=== PATIENT | female | born 1955 | race Caucasian/White ===

== ENCOUNTER 2017-02-08 08:50 | Inpatient (IN) | payer OTHER ==
--- NOTE | 2017-02-08 09:34 | ED Physician Chart ---
ED Chief Complaint/HPI - Patient Information Date Seen:: 02/08/17 Time Seen:: 09:20 Chief Complaint:: abdominal pain History of Present Illness:: Patient's had mid and upper abdominal pain for 3 week. She's had no vomiting. She has had mild diarrhea. On January 26 patient had a CAT scan at [facility] which showed a mass patient has appointment with an oncologist on 02/16/2017. Allergies:: Allergies Allergy/AdvReac Type Severity Reaction Status Date / Time acetaminophen [From Tylenol] AdvReac Verified 02/08/17 09:13 Vitals:: Vital Signs - 8 hr 02/08/17 09:13 Temp 98.0 F HR 106 RR 16 BP 117/73 O2 Sat % 98 ED Review of Systems - Review of Systems General/Constitutional: No fever, No chills Skin: No skin lesions Head: No headache Eyes: No loss of vision ENT: No earache Neck: No neck pain Cardio Vascular: No chest pain, No palpitations Pulmonary: No SOB GI: Diarrhea, Pain G/U: No dysuria Musculoskeletal: No bone or joint pain Endocrine: No polyuria, No polydipsia Psychiatric: No prior psych history Hematopoietic: No bruising Allergic/Immuno: No urticaria Neurological: No syncope, No focal symptoms ED Past Medical History - Past Medical History Past Medical History: Asthma/COPD, Other (asthma) Family History: None Social History: Non Smoker, No Alcohol Surgical History: , other (3 sections; ovarian cysts; endometriosis) Psychiatricy History: None Family Medical History - Family Member Mother History Unknown: Yes ED Physical Exam - Physical Examination General/Constitutional: Well-developed, well-nourished, Alert, No distress Head: Atraumatic Eyes: Lids, conjuctiva normal, PERRL Skin: Nl inspection, No rash ENMT: External ears, nose nl Neck: No nuchal rigidity Respiratory: Nl effort/Exclusion, Clear to Auscultation, No Wheeze/Rhonchi/Rales Cardio Vascular: RRR, No murmur, gallop, rubs, NL S1 S2 GI: No hernia, Normal BS's, No mass/bruits Other GI comments:: 2 out of 4 abdominal distention; bowel sounds present; diffuse tenderness Extremities: Normal digits & nails Other Extremities comments:: 2 out of 4 pretibial pitting edema Neuro/Psych: No focal deficits Misc: Normal back ED Labs/Radiology/EKG Results - Lab Results Results: Laboratory Results - last 24 hr 02/08/17 02/08/17 02/08/17 09:32 09:44 09:44 WBC 10.7 RBC 4.92 Hgb 14.0 Hct 43.3 MCV 88.1 MCH 28.4 MCHC Differential 32.2 RDW 13.8 Plt Count 509 H MPV 7.9 Neutrophils % 87.9 H Lymphocytes % 8.5 L Monocytes % 3.4 Eosinophils % 0.2 Basophils % 0.0 Sodium 136 Potassium 3.5 Chloride 101 Carbon Dioxide 28.7 Anion Gap 9.8 BUN 17 Creatinine 0.6 Est GFR ( Amer) > 60.0 Est GFR (Non-Af Amer) > 60.0 BUN/Creatinine Ratio 28.3 Glucose 171 H Calcium 11.5 H Total Bilirubin 0.8 AST 21 ALT 13 Alkaline Phosphatase 52 Total Protein 7.2 Albumin 4.3 Globulin 2.9 Albumin/Globulin Ratio 1.5 Lipase Urine Source RANDOM Urine Color YELLOW Urine Clarity HAZY Urine pH 6.0 Ur Specific [place] 1.025 Urine Protein 30 H Urine Glucose (UA) NEGATIVE Urine Ketones TRACE Urine Blood LARGE H Urine Nitrate NEGATIVE Urine Bilirubin SMALL H Urine Urobilinogen 0.2 Ur Leukocyte Esterase NEGATIVE Urine RBC 10-25 H Urine WBC 2-5 Ur Epithelial Cells MODERATE Urine Bacteria 2+ H Urine Mucus MODERATE 02/08/17 09:44 WBC RBC Hgb Hct MCV MCH MCHC Differential RDW Plt Count MPV Neutrophils % Lymphocytes % Monocytes % Eosinophils % Basophils % Sodium Potassium Chloride Carbon Dioxide Anion Gap BUN Creatinine Est GFR ( Amer) Est GFR (Non-Af Amer) BUN/Creatinine Ratio Glucose Calcium Total Bilirubin AST ALT Alkaline Phosphatase Total Protein Albumin Globulin Albumin/Globulin Ratio Lipase < 3 L Urine Source Urine Color Urine Clarity Urine pH Ur Specific [place] Urine Protein Urine Glucose (UA) Urine Ketones Urine Blood Urine Nitrate Urine Bilirubin Urine Urobilinogen Ur Leukocyte Esterase Urine RBC Urine WBC Ur Epithelial Cells Urine Bacteria Urine Mucus ED Assessment - Assessment General Assessment: Patient has multiple gallstones and a pelvic mass which could be a dermoid cyst or could be a malignancy. I spoke to the radiologist to said to determine if the patient has acute cholecystitis a HIDA scan is indicated. I spoke to Dr. Rivera and patient to be admitted. ED Septic Shock - . Is Septic Shock (SBP<90, OR Lactate>4 mmol\L) present?: No - <6hrs of presentation: Vital Signs: Vital Signs - 8 hr 02/08/17 09:13 Temp 98.0 F HR 106 RR 16 BP 117/73 O2 Sat % 98 ED Reassessment (Disposition) - Reassessment Reassessment Condition:: Unchanged - Diagnosis Diagnosis:: Cholelithiasis; pelvic mass; possible acute cholecystitis - Aftercare/Follow up Instructions Aftercare/Follow-Up Instructions:: Counseled pt regarding lab results/diagnosis & need follow up - Patient Disposition Admitted to:: Med/Surg Spoke to:: Karri Rivera Admitting Medical Physician:: Karri Rivera Condition at Disposition:: Stable, Unchanged
[2017-02-08 09:47] LABS: URINE MICROSCOPIC INDICATED? YES; URINE SOURCE RANDOM
[2017-02-08 09:52] LABS: WHITE BLOOD COUNT 10.7 Th/cmm (4.8-10.8)
[2017-02-08 09:53] LABS: URINE BILIRUBIN SMALL (NEGATIVE); URINE BLOOD LARGE (NEGATIVE); URINE CLARITY HAZY (CLEAR); URINE COLOR YELLOW; URINE GLUCOSE (UA) NEGATIVE (NEGATIVE); URINE KETONE TRACE mg/dL (NEGATIVE); URINE LEUKOCYTE ESTERASE NEGATIVE (NEGATIVE); URINE NITRATE NEGATIVE (NEGATIVE); URINE PROTEIN 30 mg/dL (NEGATIVE); URINE UROBILINOGEN 0.2 E.U./dL (0.2 - 1.0)
[2017-02-08 09:54] LABS: % EOSINOPHILS 0.2 % (0.0-5.0); % LYMPHOCYTES 8.5 % (20.0-50.0); % MONOCYTES 3.4 % (2.0-10.0); % NEUTROPHILS 87.9 % (40.0-80.0); HEMATOCRIT 43.3 % (41.0-60); LYMPHOCYTE ABSOLUTE 0.9 Th/cmm (1.5-3.0); MEAN CELL VOLUME 88.1 fl (81-100); MEAN CORPUSCULAR HEMOGLOBIN 28.4 pg (27.0-31.0); MEAN CORPUSCULAR HGB CONC 32.2 pg (28.0-36.0); MEAN PLATELET VOLUME 7.9 fl; MONOCYTE ABSOLUTE 0.4 Th/cmm (0.3-1.0); NEUTROPHILE ABSOLUTE 9.4 Th/cmm (1.8-8.0); PLATELET COUNT 509 Th/cmm (150-400); RED BLOOD COUNT 4.92 Mil/cmm (3.80-5.10); RED CELL DISTRIBUTION WIDTH 13.8 % (11.5-20.0)
[2017-02-08 09:56] LABS: URINE BACTERIA 2+ /hpf (NONE SEEN); URINE EPITHELIAL CELLS MODERATE /lpf (FEW)
[2017-02-08 10:15] LABS: ALB/GLOB RATIO 1.5 (1.0-1.8); ALBUMIN 4.3 gm/dL (3.7-5.3); ALKALINE PHOSPHATASE 52 U/L (34-104); ANION GAP 9.8 (7.0-16.0); BILIRUBIN,TOTAL 0.8 mg/dL (0.3-1.0); BUN - UREA NITROGEN 17 mg/dL (7-25); CALCIUM SERUM 11.5 mg/dL (8.6-10.3); CARBON DIOXIDE 28.7 mEq/L (21.0-31.0); CHLORIDE 101 mEq/L (98-107); CREATININE - SERUM 0.6 mg/dL (0.6-1.2); GFR AFRICAN-AMERICAN > 60.0 ml/min (>90); GFR NON AFRICAN-AMERICAN > 60.0 ml/min; GLUCOSE 171 mg/dL (70-105); POTASSIUM SERUM 3.5 mEq/L (3.5-5.1); SGOT 21 U/L (13-39); SGPT/ALT 13 U/L (7-52); SODIUM SERUM 136 mEq/L (136-145); TOTAL PROTEIN,SERUM 7.2 gm/dL (6.0-8.3)
--- NOTE | 2017-02-08 10:34 | Diagnostic Imaging Report ---
Exam: CT examination of the pelvis. HISTORY: Abdominal pain Total DLP equals 440 CTDI equals 9.3 Findings: Multiple contiguous thin section of the pelvis obtained from lower thorax to pubic symphysis without the demonstration of intravenous or oral contrast material. No prior studies available comparison. The study demonstrates a normal aeration of lung parenchyma the bases Results evidence for moderate size hiatal hernia. There is evidence for large amount of ascitic fluid. The liver and spleen intact. The kidneys demonstrate mild right-sided hydronephrosis with the prominence of the right ureter. The left kidney is intact. The pancreas is normal. The gallbladder is distended. There is evidence for multiple gallbladder stones, cholecystitis cannot be excluded. Ultrasound summation gallbladder all HIDA scan might be helpful. There is evidence for significant the fibroid infiltration of uterus with the multiple calcifications. There is a question of a dermoid in the uterus. The uterus measures 13 cm longest diameter. The urinary bladder distended. Bony structures demonstrate no evidence for lytic or blastic changes. IMPRESSION: 1. Large amount of ascitic fluid to cholelithiasis distended gallbladder question of cholecystitis. 2. Right sided hydronephrosis with hydroureter. 3. Significant Increase in size of the uterus with the multiple calcification and fat-containing mass suggestive of dermoid mass. 4. The urinary bladder is poorly seen due to large fibroid uterus. 5. Height hernia area
[2017-02-08] MEDS ORDERED: Sodium Chloride 0.9% 1,000 ML IV ONE (11:09)
[2017-02-08] MEDS ORDERED: HYDROmorphone 1 mg/mL 1mL Syr IVP STA (11:10)
[2017-02-08] MEDS ORDERED: HYDROmorphone 1 mg/mL 1mL Syr ONE (11:24)
[2017-02-08] MEDS: Sodium Chloride 0.9% 1,000 ML IV SCH (15:59)
[2017-02-08] MEDS: HYDROmorphone 1 mg/mL 1mL Syr IVP PRN (20:26)
[2017-02-09] MEDS: Sodium Chloride 0.9% 1,000 ML IV SCH ×2 (03:26→16:26)
--- NOTE | 2017-02-09 08:12 | History and Physical ---
History of Present Illness - HPI Chief Complaint: Abdominal pain and abdominal distension. HPI: Patient refer josé luis 3 weeks ago started to have abdominal pain, distension and vaginal bleeding. She went to other hospital and abdominal ct was done and pelvic mass was found, she already has an appointment with oncology in 02/16/17. Patient came to ER due to abdominal pain. Vital Signs: Last Vital Signs Temp 98 F 02/09/17 03:59 Pulse 74 02/09/17 03:59 Resp 18 02/09/17 03:59 BP 134/70 02/09/17 03:59 Pulse Ox 98 02/09/17 03:59 Past Medical History Cardiovascular: Report: No Pertinent Hx Pulmonary: Report: Asthma, COPD [employer]: Report: No Pertinent Hx GI: Report: No Pertinent Hx Psych: Report: No Pertinent Hx Musculoskeletal: Report: No Pertinent Hx Infectious Disease: Report: No Pertinent Hx Renal/: Report: No Pertinent Hx Endocrine: Report: No Pertinent Hx Dermatology: Report: No Pertinent Hx - Past Surgical History Past Surgical History: Family Medical History - Family Member Mother History Unknown: Yes Ethnicity: Living Status: Unknown Hx Family Cancer: Yes (COLON CANCER) Hx Family Coronary Artery Disease: No Hx Family Congestive Heart Failure: No Hx Family Hypertension: No Hx Family Stroke: No Hx Family Diabetes: No Hx Family Seizures: No Hx Family Dementia: No Hx Family AIDS: No Hx Family HIV: No Hx Family COPD: No Hx Family Hepatitis: No Hx Family Psychiatric Problems: No Hx Family Tuberculosis: No Social History Smoke: No Alcohol: None Drugs: None Lives: Alone Domestic Violence: Negative - Allergies Allergies/Adverse Reactions: Allergies Allergy/AdvReac Type Severity Reaction Status Date / Time acetaminophen [From Tylenol] AdvReac Verified 02/08/17 09:13 Review of Systems - Review of Systems Constitutional: Report: Weakness Eyes: Report: No Significant ENT: Report: No Significant Respiratory: Report: No Significant Cardiovascular: Report: No Significant Gastrointestinal: Report: Other (Abdominal pain and abdominal distension) Genitourinary: Report: No Significant Musculoskeletal: Report: No Significant Skin: Report: No Significant Neurological: Report: No Significant Physical Exam - Physical Exam HEENT: Report: Ears Nose Throat within normal limits Neck: Report: Within normal limits Cardiovascular Systems: Report: Regular, Rate and Rhythm Respiratory: Report: Breath Sounds are within normal limits Abdomen: Report: Other (Abdominal distension, pain at palpation, BS present. ) Back: Report: Inspection of back is within normal limits. Extremities: Report: Non-tender to palpation. Skin: Report: Color of skin is within normal limits Neuro/Psych: Report: Mood affect is within normal limits - Assessment Assessment: Patient is awake, alert, anxious, in no acute distress. Dx: UTI, Cholelitiasis , Ascitis, Pelvic mass - Plan Plan: Patient in IV NS, AB, Regular diet. Consult with GI and Surgery requested. Will continue to monitor.
[2017-02-09] MEDS: HYDROmorphone 1 mg/mL 1mL Syr IVP PRN ×2 (09:12→16:26)
[2017-02-09] MEDS: Levofloxacin 500mg/100mL 500 MG/100 ML BAG IV SCH (09:55)
--- NOTE | 2017-02-10 01:36 | Consultation ---
DATE OF CONSULTATION: 02/09/2017 REASON FOR CONSULTATION: Abdominal pain, abdominal distention. HISTORY OF PRESENT ILLNESS: This consult was obtained through the courtesy of Dr. 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 Apparently, the patient was at [place] [place] had this diagnosis, had set up to see a FOUNDER and then [facility] Oncology on 02/16. Because of discomfort, the patient came here for further evaluation. The patient admits to nausea and abdominal pain. Denies any weight loss. No hematemesis, melena, or hematochezia. PAST MEDICAL HISTORY: Hyperlipidemia. PAST SURGICAL HISTORY: , left oophorectomy in 1982, and right-sided some sort of ovarian surgery in 1984. SOCIAL HISTORY: Nonsmoker, alcoholic, IV drug abuser. FAMILY HISTORY: Mother had colon cancer, but the patient herself never had a colonoscopy. REVIEW OF SYSTEMS: As stated above. ALLERGIES: Tylenol. MEDICATIONS: The patient is on Dilaudid and Levaquin. PHYSICAL EXAMINATION: GENERAL: The patient is awake, oriented to self, place, and time, in mild distress. VITAL SIGNS: Blood pressure is 144/80, heart rate 84, respiratory rate 18, temperature is 98.1. HEAD AND NECK: Pupils reactive to light. Extraocular muscles are intact. Sclerae are anicteric. Conjunctivae not pale. Oral cavity, no lesion. NECK: Supple, no jugular venous distention, no carotid bruit or lymph node. CHEST: Good respiratory movements. LUNGS: Clear to auscultation. CARDIOVASCULAR SYSTEM: Regular rate and rhythm. No murmur or gallop. ABDOMEN: Distended, firm, positive bowel sounds. Mild vague diffuse tenderness. EXTREMITIES: Lower extremities, no edema. CENTRAL NERVOUS SYSTEM: Grossly nonfocal. LABORATORY DATA: CBC showed platelets of 509, otherwise unremarkable. Chemistry showed normal liver function tests. Lipase less than 3. The patient had a CT of the abdomen and pelvis, which showed large amount of ascitic fluids. Also, cholelithiasis, hydronephrosis in the right side, increased uterine size suggestive of calcification or fat containing mass suspicious for dermoid mass. IMPRESSION: A 61-year-old with pelvic mass, possibly uterine, possibly dermoid tumor, now with ascites and cholelithiasis. ASSESSMENT AND PLAN: 1. Abdominal pain, most probably from the dermoid mass, but could be also from the ascitic fluids. We initially did not want to do paracentesis, but the patient is anxious, saying she is having significant pain, she is having significant discomfort. Her appointment with the FOUNDER is not for another week, so we will give it a shot and do paracentesis and then see how she is going to do with that. 2. 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 3. Cholelithiasis. At this time, it does not seem to be symptomatic. The pain over the patient is not typical of cholelithiasis and a blood test does not support this, so continue current management and then patient should follow with her [facility] Oncology. I had a long discussion with the patient and the family and I advised them to make sure that they keep the appointment, they have somebody speaking [place]ian, they have all the document with them because it is not an easy thing to get a Surgical Oncology consultation after that and they need these things to be taken care of as quickly as possible. Thank you, Dr. Rivera for allowing me to participate in the care of the patient. If you have any further questions, please let me know. JOB# [id number]
[2017-02-10 06:10] LABS: % BASOPHILS 1.4 % (0.0-2.0); % LYMPHOCYTES 16.8 % (20.0-50.0); % MONOCYTES 10.8 % (2.0-10.0); BASOPHILE ABSOLUTE 0.1 Th/cumm (0-0.2); EOSINOPHILE ABSOLUTE 0.1 Th/cmm (0.1-0.4); HEMOGLOBIN 12.1 gm/dL (12-16); LYMPHOCYTE ABSOLUTE 1.3 Th/cmm (1.5-3.0); MEAN CELL VOLUME 87.7 fl (81-100); MEAN CORPUSCULAR HEMOGLOBIN 28.9 pg (27.0-31.0); MEAN PLATELET VOLUME 7.7 fl; MONOCYTE ABSOLUTE 0.9 Th/cmm (0.3-1.0); NEUTROPHILE ABSOLUTE 5.6 Th/cmm (1.8-8.0); PLATELET COUNT 464 Th/cmm (150-400); RED BLOOD COUNT 4.17 Mil/cmm (3.80-5.10); RED CELL DISTRIBUTION WIDTH 13.7 % (11.5-20.0)
[2017-02-10 06:11] LABS: HEMATOCRIT 36.6 % (41.0-60)
[2017-02-10 08:16] LABS: INR 0.99 (0.5-1.4); PROTHROMBIN TIME (TEST) 10.3 SECONDS (9.5-11.5)
[2017-02-10] MEDS ORDERED: Potassium Phosphate 20 MMOLE in Sodium Chloride 0.9% 250 ML IV ONE (08:42)
--- NOTE | 2017-02-10 08:49 | General Progress Note ---
Subjective - Review of Systems Service Date: 02/10/17 Subjective: I feel better Objective - Results Result Diagrams: 02/10/17 05:50 02/10/17 05:50 Recent Labs: Laboratory Last Values WBC 8.0 Th/cmm (4.8-10.8) D 02/10/17 05:50 RBC 4.17 Mil/cmm (3.80-5.10) 02/10/17 05:50 Hgb 12.1 gm/dL (12-16) 02/10/17 05:50 Hct 36.6 % (41.0-60) L D 02/10/17 05:50 MCV 87.7 fl (81-100) 02/10/17 05:50 MCH 28.9 pg (27.0-31.0) 02/10/17 05:50 MCHC Differential 33.0 pg (28.0-36.0) 02/10/17 05:50 RDW 13.7 % (11.5-20.0) 02/10/17 05:50 Plt Count 464 Th/cmm (150-400) H 02/10/17 05:50 MPV 7.7 fl 02/10/17 05:50 Neutrophils % 70.0 % (40.0-80.0) 02/10/17 05:50 Lymphocytes % 16.8 % (20.0-50.0) L 02/10/17 05:50 Monocytes % 10.8 % (2.0-10.0) H 02/10/17 05:50 Eosinophils % 1.0 % (0.0-5.0) 02/10/17 05:50 Basophils % 1.4 % (0.0-2.0) 02/10/17 05:50 PT 10.3 SECONDS (9.5-11.5) 02/10/17 05:50 INR 0.99 (0.5-1.4) 02/10/17 05:50 PTT (Actin FS) 28.0 SECONDS (26.0-38.0) 02/10/17 05:50 Sodium 139 mEq/L (136-145) 02/10/17 05:50 Potassium 3.0 mEq/L (3.5-5.1) L 02/10/17 05:50 Chloride 104 mEq/L (98-107) 02/10/17 05:50 Carbon Dioxide 26.1 mEq/L (21.0-31.0) 02/10/17 05:50 Anion Gap 11.9 (7.0-16.0) 02/10/17 05:50 BUN 16 mg/dL (7-25) 02/10/17 05:50 Creatinine 0.4 mg/dL (0.6-1.2) L 02/10/17 05:50 Est GFR ( Amer) > 60.0 ml/min (>90) 02/10/17 05:50 Est GFR (Non-Af Amer) > 60.0 ml/min 02/10/17 05:50 BUN/Creatinine Ratio 40.0 02/10/17 05:50 Glucose 116 mg/dL (70-105) H 02/10/17 05:50 Calcium 10.4 mg/dL (8.6-10.3) H 02/10/17 05:50 Total Bilirubin 0.6 mg/dL (0.3-1.0) 02/10/17 05:50 AST 18 U/L (13-39) 02/10/17 05:50 ALT 10 U/L (7-52) 02/10/17 05:50 Alkaline Phosphatase 44 U/L (34-104) 02/10/17 05:50 Total Protein 6.0 gm/dL (6.0-8.3) 02/10/17 05:50 Albumin 3.4 gm/dL (3.7-5.3) L 02/10/17 05:50 Globulin 2.6 gm/dL 02/10/17 05:50 Albumin/Globulin Ratio 1.3 (1.0-1.8) 02/10/17 05:50 Lipase < 3 U/L (11-82) L 02/08/17 09:44 Urine Source RANDOM 02/08/17 09:32 Urine Color YELLOW 02/08/17 09:32 Urine Clarity HAZY (CLEAR) 02/08/17 09:32 Urine pH 6.0 (4.6 - 8.0) 02/08/17 09:32 Ur Specific [place] 1.025 (1.005-1.030) 02/08/17 09:32 Urine Protein 30 mg/dL (NEGATIVE) H 02/08/17 09:32 Urine Glucose (UA) NEGATIVE mg/dL (NEGATIVE) 02/08/17 09:32 Urine Ketones TRACE mg/dL (NEGATIVE) 02/08/17 09:32 Urine Blood LARGE (NEGATIVE) H 02/08/17 09:32 Urine Nitrate NEGATIVE (NEGATIVE) 02/08/17 09:32 Urine Bilirubin SMALL (NEGATIVE) H 02/08/17 09:32 Urine Urobilinogen 0.2 E.U./dL (0.2 - 1.0) 02/08/17 09:32 Ur Leukocyte Esterase NEGATIVE (NEGATIVE) 02/08/17 09:32 Urine RBC 10-25 /hpf (0-5) H 02/08/17 09:32 Urine WBC 2-5 /hpf (0-5) 02/08/17 09:32 Ur Epithelial Cells MODERATE /lpf (FEW) 02/08/17 09:32 Urine Bacteria 2+ /hpf (NONE SEEN) H 02/08/17 09:32 Urine Mucus MODERATE /lpf (FEW) 02/08/17 09:32 - Physical Exam Vitals and I&O: Vital Signs Temp 99 F 02/10/17 08:00 Pulse 87 02/10/17 08:00 Resp 18 02/10/17 08:00 BP 144/77 02/10/17 08:00 Pulse Ox 100 02/10/17 08:00 Intake & Output 02/09/17 02/10/17 02/10/17 18:59 06:59 18:59 Intake Total 845 200 Balance 845 200 Weight (lbs) 67.585 kg Intake: Intake, IV Amount 845 Levofloxacin 500mg/100mL 100 500 mg In 100 ml @ 100 mls/hr IV Q24HR [facility] Rx#: [id number] Sodium Chloride 0.9% 1, 745 000 ml @ 90 mls/hr IV . Q11H7M [facility] Rx#:[id number] Oral 200 Other: # Voids 3 # Bowel Movements 0 Active Medications: Current Medications Hydromorphone HCl (Dilaudid) 1 mg IVP Q6H PRN PRN Reason: pain Stop: 04/09/17 11:52 Last Admin: 02/09/17 16:26 Dose: 1 mg Sodium Chloride (Nacl 0.9%) 1,000 mls @ 90 mls/hr IV .Q11H7M [facility] Stop: 04/09/17 11:52 Last Admin: 02/09/17 16:26 Dose: 90 mls/hr Levofloxacin (Levaquin Pb) 500 mg in 100 mls @ 100 mls/hr IV Q24HR [facility] Stop: 04/10/17 09:59 Last Infusion: 02/09/17 13:14 Dose: Infused Potassium Phosphate 20 mmole/ (Sodium Chloride) 256.6667 mls @ 42.5 mls/hr IV X1 ONE Stop: 02/10/17 14:44 General: Alert, Oriented x3, No acute distress HEENT: Atraumatic Neck: Supple Cardiovascular: Regular rate Lungs: Clear to auscultation Abdomen: Tender, Distended, Other (With ascitis) Extremities: Other (No edema) Neurological: Normal gait Skin: Other (Warm and dry) Psych/Mental Status: Mental status NL Assessment/Plan - Assessment Assessment: Patient is awake, alert, anxious, in no acute distress. Dx: UTI, Cholelitiasis , Ascitis, Pelvic mass possible dermoid - Plan Plan: Patient in IV NS, AB, Regular diet. Already seen by GI and Surgery. Possible Abdominal paracentesis today. Will continue to monitor.
--- NOTE | 2017-02-10 09:08 | General Progress Note ---
Subjective - Review of Systems Service Date: 02/10/17 Events since last encounter: CT scan report from [facility] shows huge mass (22 x 26 cm) likely teratoma pateint has appointment with Oncologist I have ordered tumor markers but this will not be back for 5 days suggest patient keep appointment with Oncologist Objective - Results Result Diagrams: 02/10/17 05:50 02/10/17 05:50 Recent Labs: Laboratory Last Values WBC 8.0 Th/cmm (4.8-10.8) D 02/10/17 05:50 RBC 4.17 Mil/cmm (3.80-5.10) 02/10/17 05:50 Hgb 12.1 gm/dL (12-16) 02/10/17 05:50 Hct 36.6 % (41.0-60) L D 02/10/17 05:50 MCV 87.7 fl (81-100) 02/10/17 05:50 MCH 28.9 pg (27.0-31.0) 02/10/17 05:50 MCHC Differential 33.0 pg (28.0-36.0) 02/10/17 05:50 RDW 13.7 % (11.5-20.0) 02/10/17 05:50 Plt Count 464 Th/cmm (150-400) H 02/10/17 05:50 MPV 7.7 fl 02/10/17 05:50 Neutrophils % 70.0 % (40.0-80.0) 02/10/17 05:50 Lymphocytes % 16.8 % (20.0-50.0) L 02/10/17 05:50 Monocytes % 10.8 % (2.0-10.0) H 02/10/17 05:50 Eosinophils % 1.0 % (0.0-5.0) 02/10/17 05:50 Basophils % 1.4 % (0.0-2.0) 02/10/17 05:50 PT 10.3 SECONDS (9.5-11.5) 02/10/17 05:50 INR 0.99 (0.5-1.4) 02/10/17 05:50 PTT (Actin FS) 28.0 SECONDS (26.0-38.0) 02/10/17 05:50 Sodium 139 mEq/L (136-145) 02/10/17 05:50 Potassium 3.0 mEq/L (3.5-5.1) L 02/10/17 05:50 Chloride 104 mEq/L (98-107) 02/10/17 05:50 Carbon Dioxide 26.1 mEq/L (21.0-31.0) 02/10/17 05:50 Anion Gap 11.9 (7.0-16.0) 02/10/17 05:50 BUN 16 mg/dL (7-25) 02/10/17 05:50 Creatinine 0.4 mg/dL (0.6-1.2) L 02/10/17 05:50 Est GFR ( Amer) > 60.0 ml/min (>90) 02/10/17 05:50 Est GFR (Non-Af Amer) > 60.0 ml/min 02/10/17 05:50 BUN/Creatinine Ratio 40.0 02/10/17 05:50 Glucose 116 mg/dL (70-105) H 02/10/17 05:50 Calcium 10.4 mg/dL (8.6-10.3) H 02/10/17 05:50 Total Bilirubin 0.6 mg/dL (0.3-1.0) 02/10/17 05:50 AST 18 U/L (13-39) 02/10/17 05:50 ALT 10 U/L (7-52) 02/10/17 05:50 Alkaline Phosphatase 44 U/L (34-104) 02/10/17 05:50 Total Protein 6.0 gm/dL (6.0-8.3) 02/10/17 05:50 Albumin 3.4 gm/dL (3.7-5.3) L 02/10/17 05:50 Globulin 2.6 gm/dL 02/10/17 05:50 Albumin/Globulin Ratio 1.3 (1.0-1.8) 02/10/17 05:50 Lipase < 3 U/L (11-82) L 02/08/17 09:44 Urine Source RANDOM 02/08/17 09:32 Urine Color YELLOW 02/08/17 09:32 Urine Clarity HAZY (CLEAR) 02/08/17 09:32 Urine pH 6.0 (4.6 - 8.0) 02/08/17 09:32 Ur Specific [place] 1.025 (1.005-1.030) 02/08/17 09:32 Urine Protein 30 mg/dL (NEGATIVE) H 02/08/17 09:32 Urine Glucose (UA) NEGATIVE mg/dL (NEGATIVE) 02/08/17 09:32 Urine Ketones TRACE mg/dL (NEGATIVE) 02/08/17 09:32 Urine Blood LARGE (NEGATIVE) H 02/08/17 09:32 Urine Nitrate NEGATIVE (NEGATIVE) 02/08/17 09:32 Urine Bilirubin SMALL (NEGATIVE) H 02/08/17 09:32 Urine Urobilinogen 0.2 E.U./dL (0.2 - 1.0) 02/08/17 09:32 Ur Leukocyte Esterase NEGATIVE (NEGATIVE) 02/08/17 09:32 Urine RBC 10-25 /hpf (0-5) H 02/08/17 09:32 Urine WBC 2-5 /hpf (0-5) 02/08/17 09:32 Ur Epithelial Cells MODERATE /lpf (FEW) 02/08/17 09:32 Urine Bacteria 2+ /hpf (NONE SEEN) H 02/08/17 09:32 Urine Mucus MODERATE /lpf (FEW) 02/08/17 09:32 - Physical Exam Vitals and I&O: Vital Signs Temp 99 F 02/10/17 08:00 Pulse 87 02/10/17 08:00 Resp 18 02/10/17 08:00 BP 144/77 02/10/17 08:00 Pulse Ox 100 02/10/17 08:00 Intake & Output 02/09/17 02/10/17 02/10/17 18:59 06:59 18:59 Intake Total 845 200 Balance 845 200 Weight (lbs) 67.585 kg Intake: Intake, IV Amount 845 Levofloxacin 500mg/100mL 100 500 mg In 100 ml @ 100 mls/hr IV Q24HR [facility] Rx#: [id number] Sodium Chloride 0.9% 1, 745 000 ml @ 90 mls/hr IV . Q11H7M [facility] Rx#:[id number] Oral 200 Other: # Voids 3 # Bowel Movements 0 Active Medications: Current Medications Hydromorphone HCl (Dilaudid) 1 mg IVP Q6H PRN PRN Reason: pain Stop: 04/09/17 11:52 Last Admin: 02/09/17 16:26 Dose: 1 mg Sodium Chloride (Nacl 0.9%) 1,000 mls @ 90 mls/hr IV .Q11H7M [facility] Stop: 04/09/17 11:52 Last Admin: 02/09/17 16:26 Dose: 90 mls/hr Levofloxacin (Levaquin Pb) 500 mg in 100 mls @ 100 mls/hr IV Q24HR [facility] Stop: 04/10/17 09:59 Last Infusion: 02/09/17 13:14 Dose: Infused Potassium Phosphate 20 mmole/ (Sodium Chloride) 256.6667 mls @ 42.5 mls/hr IV X1 ONE Stop: 02/10/17 14:44 General: Alert, Oriented x3, No acute distress HEENT: Atraumatic Neck: Supple Cardiovascular: Regular rate Lungs: Clear to auscultation Abdomen: Tender, Distended, Other (With ascitis) Extremities: Other (No edema) Neurological: Normal gait Skin: Other (Warm and dry) Psych/Mental Status: Mental status NL
[2017-02-10 09:19] LABS: CA 125 (OVARIAN) 771.7 U/mL (0.0-38.1)
[2017-02-10] MEDS: Levofloxacin 500mg/100mL 500 MG/100 ML BAG IV SCH (09:24)
--- NOTE | 2017-02-10 11:25 | History & Physical ---
ADMIT DATE: 02/09/2017 SURGICAL CONSULTATION REFERRING PHYSICIAN: Dr. Rivera. REASON FOR CONSULTATION: Abdominal pain. Thank you for referring this patient to me. This is a 61-year-old female who started having abdominal pain for the last 3 weeks. She also had vaginal bleeding. On 01/26/2017, she went to [facility] where a CT scan was done, which showed a large complex mass in the abdomen and pelvis, 16 x 21 x 22 cm containing calcifications, flap components and fluid components suggesting teratoma. There is also a 2.2 x 2.6 cm mass lesion in the liver dome. Additionally, multiple gallstones were noted. Because of persistent abdominal pain she came to this facility and was admitted. The laboratory studies here showed CBC to be within normal limits; the chemistry likewise. CT scan at this facility mentions the gallstones and evidence of fibroid infiltration of the uterus with calcifications. PHYSICAL EXAMINATION: There is a large mass in the upper abdomen, was moderately tender. Scars from previous surgeries are noted. RECOMMENDATIONS: Tumor markers have been ordered. The patient has also been referred to an oncologist with the appointment on 02/17/2016. This patient should make that appointment and likely will need exploration. Thank you very much. JOB# [id number]
--- NOTE | 2017-02-10 13:31 | Discharge Summary ---
General Discharge Summary - Discharge Summary Date of Admission: 02/09/17 Admitting Diagnosis: Abdominal distension Discharge Date: 02/10/17 Discharge Diagnosis: Pelvic Mass possible Cancer, Ascitis Laboratory Findings: Laboratory Tests 02/09/17 02/09/17 02/10/17 09:44 09:44 05:50 WBC 8.0 D RBC 4.17 Hgb 12.1 Hct 36.6 L D MCV 87.7 MCH 28.9 MCHC Differential 33.0 RDW 13.7 Plt Count 464 H MPV 7.7 Neutrophils % 70.0 Lymphocytes % 16.8 L Monocytes % 10.8 H Eosinophils % 1.0 Basophils % 1.4 PT INR PTT (Actin FS) Sodium Potassium Chloride Carbon Dioxide Anion Gap BUN Creatinine Est GFR ( Amer) Est GFR (Non-Af Amer) BUN/Creatinine Ratio Glucose Calcium Total Bilirubin AST ALT Alkaline Phosphatase Total Protein Albumin Globulin Albumin/Globulin Ratio Carcinoembryonic Ag 0.7 CA 19-9 Antigen 69 H CA 125 Antigen 771.7 H 02/10/17 02/10/17 05:50 05:50 WBC RBC Hgb Hct MCV MCH MCHC Differential RDW Plt Count MPV Neutrophils % Lymphocytes % Monocytes % Eosinophils % Basophils % PT 10.3 INR 0.99 PTT (Actin FS) 28.0 Sodium Cancelled Potassium Cancelled Chloride Cancelled Carbon Dioxide Cancelled Anion Gap Cancelled BUN Cancelled Creatinine Cancelled Est GFR ( Amer) Cancelled Est GFR (Non-Af Amer) Cancelled BUN/Creatinine Ratio Cancelled Glucose Cancelled Calcium Cancelled Total Bilirubin Cancelled AST Cancelled ALT Cancelled Alkaline Phosphatase Cancelled Total Protein Cancelled Albumin Cancelled Globulin Cancelled Albumin/Globulin Ratio Cancelled Carcinoembryonic Ag CA 19-9 Antigen CA 125 Antigen Hospital Course: Patient was hospitalizwd, started in IV NS, consult with GI, and surtgery were done and recommendations were follow. Paracentesis was requested but radiologist did not recommended. Treatment: Patient had pain control and seen by surgery GI and radiology. Disposition: PT DISCHARGED HOME Inpatient Medications: Current Medications Hydromorphone HCl (Dilaudid) 1 mg IVP Q6H PRN PRN Reason: pain Stop: 04/09/17 11:52 Last Admin: 02/09/17 16:26 Dose: 1 mg Sodium Chloride (Nacl 0.9%) 1,000 mls @ 90 mls/hr IV .[id number] MIKAL Stop: 04/09/17 11:52 Last Admin: 02/09/17 16:26 Dose: 90 mls/hr Levofloxacin (Levaquin Pb) 500 mg in 100 mls @ 100 mls/hr IV Q24HR MIKAL Stop: 04/10/17 09:59 Last Infusion: 02/10/17 11:18 Dose: Infused Potassium Phosphate 20 mmole/ (Sodium Chloride) 256.6667 mls @ 42.5 mls/hr IV X1 ONE Stop: 02/10/17 14:44 Last Admin: 02/10/17 11:11 Dose: 42.5 mls/hr Activity: As Tolerated Consults and Follow-Up: EMILIANA STORY [Other] Karri Rivera [Primary Care Provider] - Consulting Speciality: Other (PCP and oncology.) Instructions: Ascites, Pelvic Mass
--- NOTE | 2017-02-10 13:42 | Diagnostic Imaging Report ---
Abdominal ultrasound (Limited) HISTORY: Ascites Limited sonographic sector images were obtained for assessment of ascites. There is diffuse free fluid/ascites throughout the abdomen and pelvis. However there is an insufficient focal collection visualized for percutaneous paracentesis at this time. As such, paracentesis was deferred.
[2017-02-10] MEDS ORDERED: Probiotic Screen MC PRN (17:01)
--- NOTE | 2017-02-11 02:28 | Consultation ---
DATE OF CONSULTATION: SURGICAL CONSULTATION REFERRING PHYSICIAN: Dr. Rivera. REASON FOR CONSULTATION: Abdominal pain. Thank you for referring this patient to me. HISTORY OF PRESENT ILLNESS: This is a 61-year-old female who went to the ER into [facility] 3 weeks ago because of abdominal pain, abdominal distention and vaginal bleeding. She was told she had a mass in the upper abdomen for which she was supposed to have an appointment with an oncologist next week. We do not have a copy of the report. The patient underwent CT scan here and the CT scan showed multiple gallstones, but no mention of any mass is noted. There is mild right-sided hydronephrosis. Left kidney is intact. There is evidence for significant fibroid infiltration of the uterus with multiple calcifications with question of a dermoid in the uterus. She has had 2 C-sections and apparently the right ovary has been partially excised. The left ovary is questionable on whether it was removed or not. LABORATORY STUDIES: Show the CBC to be within normal limits as is the chemistry. PHYSICAL EXAMINATION: Scar in the lower abdomen is noted from previous surgeries. She appears to be distended, particularly in the left upper abdomen, but no masses palpable. RECOMMENDATIONS: Suggest to obtain the CT scan report from the other hospital and other tests that may have been performed there. We will need to check tumor markers. [facility]# [id number]
[2017-02-11] MEDS ORDERED: Lactobacillus Rhamnosus GG 15 Billion CFU CAP.SPRINK PO SCH (09:00)
== END 2017-02-10 17:55 | disposition home or self-care (01) | DRG 607 ==
LOC: ER 08:50 → MSI 11:24
PROVIDERS: ADMIT General Practice; ATTEND General Practice
DX: C44.509 Unspecified malignant neoplasm of skin of other part of trunk (principal); R18.8 Other ascites; N13.30 Unspecified hydronephrosis; N39.0 Urinary tract infection, site not specified; K80.20 Calculus of gallbladder without cholecystitis without obstruction; D36.7 Benign neoplasm of other specified sites; J44.9 Chronic obstructive pulmonary disease, unspecified; E78.5 Hyperlipidemia, unspecified; Z88.6 Allergy status to analgesic agent
CPT/HCPCS: 36415-UA; 76705-TC; 80053-TC; 81001-TC; 82378-90; 83690-TC; 85025-TC; 85610-TC; 86301-90; 86304-90; 87086-90; 90799; 96374; J1170; J1956; J7030